=== PATIENT | female | born 1950 | race Caucasian/White ===

== ENCOUNTER 2016-07-01 13:12 | Day surgery (SDC) | payer MEDICARE, OTHER ==
[~2016-07-01] VITALS: Ht 164.5 cm; Wt 90.0 kg
--- NOTE | 2016-07-01 07:11 | PCM.HPANE ---
Patient Data Surgeon Admitting Provider: Attending Provider:Venkata Griffin MD Primary Care Physician:Janelle Irvin PA-C Other Provider:[facility] Anesthesia Reason for Visit Epigastric Pain Ht/WT & BMI Body Mass Index Allergies Coded Allergies: No Known Allergies (Unverified , 07/01/16) Past Anesthesia History Anesthesia History: Denies:: Abnormal Airway, Anesthesia Reactions, Difficult Intubation, Fam Anesthesia Reaction, Fam Malignant Hypertherm, Malignant Hyperthermia Medications Reported Medications Calcium Carbonate (Tums)500 Mg Tab.[id number] Mg PO PRN 30 Days 07/01/16 Cholecalciferol (Vitamin D3) (Vitamin D)1,000 Unit Tablet4,000 Unit PO DAILY #1 BOTTLE Ref 0 07/01/16 Aspirin/Acetaminophen/Caffeine (Inwjlrx-Qynenrkbpkxgz-Nlor Tab)250 Mg-250 Mg-65 Mg Tablet1 Each PO 07/01/[address] 40 Mg Tablet.dr40 Mg PO DAILY Ref 0 07/01/16 Hydrocodone-Acetaminophen 5-325 mg 1 Each Tablet1 Tablet PO Q4H PRN For Pain Ref 0 07/01/16 Gabapentin 300 Mg [id number] Mg PO TID Ref 0 07/01/16 Estradiol 0.05 Mg/24 Hour Patch.tdsw1 Each TD 07/01/16 Levothyroxine 112 Mcg [id number] Mcg PO DAILY For Thyroid Replacement Ref 0 07/01/16 Duloxetine 60 Mg Capsule.dr60 Mg PO DAILY Ref 0 07/01/16 History History of ENT Problems?: No HEENT History: Denies:: Abnormal Airway Cataracts Difficult Intubation Dysphagia Glaucoma Hearing Problem Sinus Problem TMJ Denture Type: None Teeth Condition: Within Normal Limits Hx of Heart Problems?: No Cardiovascular History: Positive for:: Atrial Fibrillation Chest Pain Hx of Respiratory Problem?: No Respiratory History: Positive for:: Asthma COPD Hx Neurologic Problems?: No Neurological History: Positive for:: TIA Hx of GI Problems?: Yes Gastrointestinal History: Positive for:: Heartburn Hx of Problems?: No Genitourinary History: Positive for:: Urinary Tract Infection Hx Musculoskeletal Problems?: No Musculoskeletal History: Positive for:: Back Injury Hx Surgeries?: No Stop/Bang ZACH Risk Assessment: Low Risk, <3 Yes Risk Assessment Category Category 1A: Patient has history of documented sleep apnea, and HAS NOT received any narcotic, sedative or anesthesia administration during this stay. Category 1B: Patient has history of documented sleep apnea, and HAS received any narcotic , sedative or anesthesia administration during this stay Category 2: Patient has SUSPECTED Obstructive Sleep Apnea, and HAS received any narcotic , sedative or anesthesia administration during this stay. Category 3: Patient has SUSPECTED Obstructive Sleep Apnea and HAS NOT received narcotic, sedative or anesthesia administration during this stay. Category 4: Outpatient in Procedural Areas with known sleep apnea or who screen positive for High Risk via the STOP/BANG questionnaire. Exam Exam General Appearance: Alert, Oriented X3, Cooperative, No Acute Distress HEENT/AIRWAY: MP 2 Lungs: Clear to Auscultation, Normal Air Movement Heart: Exam Unremarkable, Regular Rate/Rhythm, No Murmurs/Rubs/Gallops Plan Impression Patient chart reviewed, patient interviewed and anesthestic plan with risks, benefits, and alternatives discussed, and informed consent obtained. NPO per Anesth. Guidelines: Yes Anesthetic Plan: MAC Bene/Risks/Altern/Consents: Yes HP Complete Prior to Induction: Yes Davon Schilling MD Jul 01, 2016 07:11
[2016-07-01] MEDS ORDERED: fentaNYL-PF 50 mCg/mL 2 mL Inj ONE (13:13)
[2016-07-01] MEDS ORDERED: Propofol 10,000 mCg/mL 20 mL Inj ONE (13:13)
[2016-07-01 13:29] VITALS: BP 144/86; PULSE 89; RESP 17; O2SAT 95
[2016-07-01] MEDS ORDERED: CALC500T9 PO (13:36)
[2016-07-01] MEDS ORDERED: DULO60CA61 PO (13:36)
[2016-07-01] MEDS ORDERED: GABA-502 PO (13:36)
[2016-07-01] MEDS ORDERED: CHOL100043 PO (13:36)
[2016-07-01] MEDS ORDERED: HYDR-4003 PO (13:36)
[2016-07-01] MEDS ORDERED: ASPI-1148 PO (13:36)
[2016-07-01] MEDS ORDERED: PANT40TA3 PO (13:36)
[2016-07-01] MEDS ORDERED: LEVO112T4 PO (13:36)
[2016-07-01] MEDS ORDERED: ESTR1PAT95 TD (13:36)
[2016-07-01] MEDS ORDERED: Lactated Ringer's 1,000 ML IV ONE (13:52)
[2016-07-01] MEDS ORDERED: Lactated Ringer's 1,000 ML IV SCH (14:01)
--- NOTE | 2016-07-01 14:01 | PCM.ANEP1 ---
Post Anesthesia Phase 1 PACU Phase 1 Assessment Vital Signs Vital Signs Date Time Temp Pulse Resp B/P Pulse Ox O2 Delivery O2 Flow Rate FiO2 07/01/16 13:29 36.6 89 17 144/86 95 Room Air Anesthetic Administered: MAC Level of Alertness: Awake, talking HUNTER's with Equal Strength: Yes Pain: No Nausea or Vomiting: No Cardiovascular Function and Hy: Yes Lungs: Clear to Auscultation, Normal Air Movement Davon Schilling MD Jul 01, 2016 14:01
[2016-07-01] MEDS ORDERED: MetoCLOpramide 5 mg/mL 2 mL Inj IVPUSH PRN (14:05)
[2016-07-01] MEDS ORDERED: Ondansetron 2 mg/mL 2 mL Inj IVPUSH PRN (14:05)
[2016-07-01 14:10] VITALS: BP 137/75; PULSE 80; PULSE 82; RESP 14; RESP 15; O2SAT 90; O2SAT 92
[2016-07-01 14:20] VITALS: BP 145/74; PULSE 91; RESP 14; O2SAT 97
--- NOTE | 2016-07-01 21:33 | ENDO ---
[address] [address] ENDOSCOPY PROCEDURE PATIENT: MAYELA GODINEZ : 1950 MR#: [id number] ADMIT: 07/01/2016 JOB ID: [id number] DATE OF SERVICE: 07/01/2016 TITLE OF OPERATION: Esophagogastroduodenoscopy with biopsy. PREOPERATIVE DIAGNOSIS(ES): Epigastric pain. POSTOPERATIVE DIAGNOSIS(ES): 1. A 4 mm, clean based, nonbleeding ulcer at the stomach right at the pylorus, status post biopsy. 2. Mild nonerosive gastritis. ANESTHESIA: Monitored anesthesia care. COMPLICATIONS: None. BLOOD LOSS: Minimal. DESCRIPTION OF PROCEDURE: After risks and benefits were explained to the patient, informed consent was obtained. After anesthesia was administered, upper endoscope was then inserted into the mouth, intubated esophagus, stomach, second portion of duodenum. Mucosa carefully examined. After procedure was done, the scope withdrawn and procedure terminated. FINDINGS: Upon inspection of the esophagus, the esophagus was normal without masses, ulcers, or lesions. Z-line located 40 cm from incisors. Upon entry of the stomach, there was a clean based, nonbleeding, 4 mm ulcer at the stomach right at the pylorus which was biopsied. Mild nonerosive gastritis was seen. Retroflexion was normal. Duodenal bulb, first and second portion were normal. Biopsies taken of the ulcer in the stomach, the antrum and body. IMPRESSIONS: 1. Mild nonerosive gastritis. 2. A 4 mm, clean based, nonbleeding ulcer at the stomach right at the pylorus, status post biopsy. RECOMMENDATION: 1. Await pathology results. 2. Protonix 40 mg by mouth twice a day. 3. Carafate 1 g by mouth four times a day. 4. Follow up with Janis Chance in GI clinic in one month.
--- NOTE | 2016-07-04 11:09 | PATH ---
SURGICAL PATHOLOGY Attending Physician:Venkata Griffin MD CASE STATUS: Signed Out PATIENT NAME: MAYELA GODINEZ PID: [id number] : 1950 DATE COLLECTED:07/01/2016 00:00 SPECIMEN: 1: Stomach, Antrum, Biopsy 2: Gastric, Biopsy 3: Stomach, Antrum, Biopsy CLINICAL HISTORY: 1). ANTRUM BIOPSY 2). GASTRIC BODY BIOPSY 3). ANTRUM ULCER (SCREEN FOR CANCER AND H.PYLORI) FINAL DIAGNOSIS: 1.ANTRUM BIOPSY: GASTRIC ANTRAL MUCOSA WITH MILD REACTIVE GASTROPATHY. Negative for Helicobacter organisms. Negative for intestinal metaplasia. Negative for dysplasia and malignancy. 2.GASTRIC BODY BIOPSY: GASTRIC BODY MUCOSA WITH MILD REACTIVE GASTROPATHY. Negative for Helicobacter organisms. Negative for intestinal metaplasia. Negative for dysplasia and malignancy. 3.GASTRIC ANTRUM ULCER: GASTRIC ANTRAL MUCOSA WITH MARKED REACTIVE GASTROPATHY WITH EROSION. Negative for Helicobacter organisms by immunohistochemical stains. Negative for intestinal metaplasia. Negative for dysplasia and malignancy. ICD10 code K29.70 GROSS DESCRIPTION: The specimen is received in three formalin filled containers labeled with the patient's name. 1). The specimen is sublabeled "antrum" and consists of 2 portions of tissue which aggregate to 0.3 x 0.3 x 0.2 CM. The specimen is entirely submitted in cassette 1A. 2). The specimen is sublabeled "gastric" and consists of 2 portions of tissue which aggregate to 0.2 x 0.2 x 0.2 CM. The specimen is entirely submitted in cassette 2A. 3). The specimen is sublabeled "antrum ulcer" and consists of a 0.2 x 0.2 x 0.2 CM portion of tissue which is entirely submitted in cassette 3A. 07/02/2016 [facility] MICRO DESCRIPTION: 3. Sections are of gastric antral mucosa with marked reactive gastropathy and erosion. Immunohistochemical stains are performed to further evaluate for the presence of Helicobacter organisms. The patient tissue is stained with monoclonal antibody to Helicobacter pylori (SP48). Positive and negative controls stain appropriately. Result: The patient tissue shows no Helicobacter staining. Interpretation: The gastric mucosa is negative for Helicobacter organisms by immunohistochemical stains. This test was developed and its performance characteristics determined by [employer]. It has not been cleared or approved by the [place]. Food and Drug Administration. The FDA has determined that such clearance or approval is not necessary. This test is used for clinical purposes. It should not be regarded as investigational or for research. ICD-9 CODES: CPT CODES: 1: 75937 2: 85602 3: 71174, 80101 Electronically Signed Out Hazel Duong MD [facility] [address], [place] [address] Technical component performed at [facility], [facility] [address], [place], [address]
== END 2016-07-01 23:59 | disposition home or self-care (01) ==
LOC: END 13:12
PROVIDERS: ATTEND Internal Medicine Gastroenterology
DX: K29.70 Gastritis, unspecified, without bleeding (principal); K25.9 Gastric ulcer, unspecified as acute or chronic, without hemorrhage or perforation; R10.13 Epigastric pain; E03.9 Hypothyroidism, unspecified; M48.00 Spinal stenosis, site unspecified; G89.29 Other chronic pain; G47.33 Obstructive sleep apnea (adult) (pediatric); F32.9 Major depressive disorder, single episode, unspecified; M54.5 Low back pain; M51.36 Other intervertebral disc degeneration, lumbar region; F17.210 Nicotine dependence, cigarettes, uncomplicated; F12.90 Cannabis use, unspecified, uncomplicated; J45.909 Unspecified asthma, uncomplicated; J44.9 Chronic obstructive pulmonary disease, unspecified; Z86.73 Personal history of transient ischemic attack (TIA), and cerebral infarction without residual deficits; Z79.891 Long term (current) use of opiate analgesic; Z79.890 Hormone replacement therapy
CPT/HCPCS: 43239; 88305; 88342; J2250; J3010; J7120